=== PATIENT | female | born 1990 | race Caucasian/White ===

== ENCOUNTER 2017-03-06 13:58 | Outpatient (CLI) | payer BC ==
[2017-03-06 15:03] LABS: APPEARANCE,URINE CLEAR; BILIRUBIN,URINE NEGATIVE (NEGATIVE); GLUCOSE, URINE NEGATIVE (NEGATIVE); KETONES,URINE NEGATIVE (NEGATIVE); LEUKOCYTE ESTERASE,URINE NEGATIVE (NEGATIVE); NITRITE,URINE NEGATIVE (NEGATIVE); PROTEIN,URINE NEGATIVE (NEGATIVE); URINE SPECIFIC GRAVITY 1.001; UROBILINOGEN,URINE NEGATIVE mg/dL (<2.0)
[2017-03-06] MEDS ORDERED: NIFEDIPINE 10 MG CAPSULE ONE (15:14)
[2017-03-06 15:16] LABS: URINE BARBITURATES SCREEN NEGATIVE; URINE METHADONE SCREEN NEGATIVE; URINE OPIATES LOW NEGATIVE; URINE PHENCYCLIDINE SCREEN NEGATIVE
[2017-03-06] MEDS ORDERED: NALBUPHINE HCL INJ 10 MG/1 ML AMPULE ONE (15:28)
[2017-03-06 16:16] LABS: ABSOLUTE EOSINOPHILS # (AUTO) 0.1 10^3/uL (0.0-0.6); ABSOLUTE LYMPHOCYTES (AUTO) 1.5 10^3/uL (0.5-4.7); ABSOLUTE MONOCYTES (AUTO) 0.5 10^3/uL (0.1-1.4); ABSOLUTE NEUT (AUTO) 5.9 10^3/uL (1.7-8.2); BASOPHILS % (AUTO) 0.3 % (0-2); EOSINOPHILS % (AUTO) 0.7 % (0-6); HEMATOCRIT 35.7 % (36.0-47.0); HGB HCT DIFFERENCE 0.3; LYMPHOCYTES % (AUTO) 18.3 % (13-45); MEAN CORPUSCULAR HEMOGLOBIN 30.6 pg (27.0-33.4); MEAN CORPUSCULAR HGB CONC 33.7 g/dL (32.0-36.0); MEAN CORPUSCULAR VOLUME 91 fl (80-97); MONOCYTES % (AUTO) 6.7 % (3-13); RED BLOOD COUNT 3.93 10^6/uL (3.72-5.28); RED CELL DISTRIBUTION WIDTH 13.1 % (11.5-14.0)
[2017-03-06 17:18] LABS: ADD HIVPANEL? NO; HIV (1 AND 2) ANTIBODY NEGATIVE (NEGATIVE)
[2017-03-06 17:44] LABS: CHLAM PCR NOT DETECTED (NOT DETECT)
--- NOTE | 2017-03-06 21:18 | L&D Discharge Summary ---
OB Discharge Summary Datetime Report Generated by CPN: 03/06/2017 21:17 DISCHARGE DIAGNOSIS Diagnosis/Symptoms: Labor Number of Babies in Womb: 1 Parity: 0 DIET/ACTIVITY/RESTRICTIONS Diet: Regular Activity: Normal Activity TEACHING/INSTRUCTIONS/REFERRALS Instructions Given To: patient Instructions Understood: Patient Verbalized Understanding; Support Person Verbalized Understanding Referrals: Director Regulatory Agency Educational Materials- Other: health department DISCHARGE INFORMATION Discharged AMA: No Discharge Date/Time: 03/06/2017 18:08 Discharged To: Home Discharge Provider Name: DR vitaen Accompanied By: Discharge Method: Ambulatory Condition: Stable FOLLOW UP INFORMATION Follow Up With: [facility] Follow Up On: As Scheduled Follow Up Phone Number: [facility] -
--- NOTE | 2017-03-07 22:49 | L&D General Admission ---
General Admit Datetime Report Generated by CPN: 03/07/2017 22:45 INFORMATION Patient Age: 26 (02/22/2017 10:09:QS system process) EDC: 05/10/2017 00:00 (03/06/2017 14:13:Katina Ruchince, RNC) : 1 (03/06/2017 14:13:Katina Ruchince, RNC) Para: 0 (03/06/2017 14:13:Katina Bellavance, RNC) Term: 0 (03/06/2017 14:13:Katina Bellavance, RNC) : 0 (03/06/2017 14:13:Katina Bellavance, RNC) Spontaneous Abortions: 0 (03/06/2017 14:13:Katina Bellavance, RNC) Induced Abortions: 0 (03/06/2017 14:13:Katina Belljuliannence, RNC) Livin (03/06/2017 14:13:Katina Andrése, RNC) Cesareans: 0 (03/06/2017 14:13:Katina Bellavance, RNC) VBACs: 0 (03/06/2017 14:13:Katina Bellavance, RNC) Ectopic: 0 (03/06/2017 14:13:Katina Bellavance, RNC) Multiple Births: 0 (03/06/2017 14:13:Katina Bellavance, RNC) Baby, Number in Womb: 1 (03/06/2017 14:13:Katina Bellavance, RNC) CARE Eligibility Clerk Other: none (03/06/2017 14:13:Miranda Camp, RNC) Month of 1st Visit: no care (03/06/2017 14:13:Miranda Camp, RNC) Adequate Care: No (03/06/2017 14:13:Katina Bellavance, RNC) Height (in): 64 (03/06/2017 14:11:QS system process) ALLERGIES Medication Allergy: No (03/06/2017 14:13:Katina Bellavance, RNC) Medication Allergies: No Known Allergies (03/06/2017) (03/06/2017 14:11:QS system process) Latex Allergy: No Latex Allergies (03/06/2017 14:13:Katina Bellavance, RNC) Food Allergies: no (03/06/2017 14:13:Katina Bellavance, RNC) Environmental Allergies: no (03/06/2017 14:13:Katina Bellavance, RNC) COMMUNICATION Primary Language: Romanian (03/06/2017 14:13:Katina Bellavance, RNC) Communication Barrier(s): Visual deficit (03/06/2017 14:13:Katina Bellavance, RNC) Communication Needs: contacts (03/06/2017 14:13:Katina Bellavance, RNC) DEMOGRAPHICS Address: [place] [address] (02/22/2017 10:09:QS system process) Zipcode: [address] (02/22/2017 10:09:QS system process) Home (02/22/2017 10:09:QS system process) Work (02/22/2017 10:18:QS system process) Work (02/22/2017 10:09:QS system process) SSN: [id number] (02/22/2017 10:09:QS system process) Next of Kin Name: KEILY BARROS (02/22/2017 10:09:QS system process) Next of Kin (02/22/2017 10:09:QS system process) Next of Kin Relationship: SPO (02/22/2017 10:09:QS system process) Date of : 1990 (02/22/2017 10:09:QS system process) Marital Status: (02/22/2017 10:09:QS system process) Sex: Female (02/22/2017 10:09:QS system process) Race: (02/22/2017 10:09:QS system process) Ethnicity: Non- or (02/22/2017 10:09:QS system process) Jain: Synagogue (03/06/2017 13:58:QS system process) DRUG AND ALCOHOL USE Alcohol: No (03/06/2017 14:13:YAIR Sharma) Cigarettes: Never Smoker. [id number] (03/06/2017 14:13:YAIR Sharma) Marijuana: No (03/06/2017 14:13:YAIR Sharma) Cocaine: No (03/06/2017 14:13:YAIR Sharma) Other Illicit Drugs: No (03/06/2017 14:13:Katina Bellavance, RNC) VACCINE HISTORY Influenza Vaccine: No (03/06/2017 14:13:Katina Bellavance, RNC) Pneumococcal Vaccine: No (03/06/2017 14:13:Katina Bellavance, RNC) Tetanus Vaccine: Uncertain (03/06/2017 14:13:Katina Bellavance, RNC) Tdap Vaccine: Uncertain (03/06/2017 14:13:Katina Bellavance, RNC) Hepatitis B Vaccine: Yes (03/06/2017 14:13:Katina Bellavance, RNC) Mechanic Insulator: [facility] (03/06/2017 14:13:Katina Bellavance, RNC) Feeding Preference: Breast (03/06/2017 14:13:Katina Bellavance, RNC) Benefit of Breast Feed Discussed: Yes (03/06/2017 14:13:Katina Bellavance, RNC) Circumcision: N/A (03/06/2017 14:13:Katina Bellavance, RNC) Classes Attended: No (03/06/2017 14:13:YAIR Sharma) Tubal Ligation: No (03/06/2017 14:13:YAIR Sharma) Tubal Authorization Signed: N/A (03/06/2017 14:13:YAIR Sharma) Consent: N/A (03/06/2017 14:13:YAIR Sharma) Consent Signed: N/A (03/06/2017 14:13:YAIR Sharma) Pain Management Plans: Epidural (03/06/2017 14:13:YAIR Sharma) Plans for Labor and Delivery: None (03/06/2017 14:13:YAIR Sharma) Support Person: keily barros (03/06/2017 14:13:YAIR Sharma) Support Person Relationship: (03/06/2017 14:13:YAIR Sharma) LABS Hemoglobin: 12.0 (03/06/2017 16:00:QS system process) Hematocrit: 35.7 L (03/06/2017 16:00:QS system process) MCV: 91 (03/06/2017 16:00:QS system process) HIV Results: NEGATIVE (03/06/2017 16:00:QS system process) Rubella: POSITIVE NEGATIVE IF LESS THAN OR EQUAL TO 9.99 IU/mL POSITIVE IF GREATER THAN OR EQUAL TO 10.0 IU/mL (03/06/2017 16:00:QS system process) Rubella Titer: 22.50 (03/06/2017 16:00:QS system process)
--- NOTE | 2017-03-07 22:49 | Antepartum Discharge Summary ---
Antepartum DC Datetime Report Generated by CPN: 03/07/2017 22:45 DIET/ACTIVITY/RESTRICTIONS Diet: Regular (03/06/2017 18:00:Miranda Camp, RNC) Activity: Normal Activity (03/06/2017 18:00:Miranda Camp, RNC) TEACHING/INSTRUCTIONS/REFERRALS Instructions Given To: patient (03/06/2017 18:00:Miranda Camp, RNC) Instructions Understood: Patient Verbalized Understanding; Support Person Verbalized Understanding (03/06/2017 18:00:Miranda Camp, RNC) Referrals: Jewel Bearing Turner (03/06/2017 18:00:Miranda Camp, RNC) Educational Materials- Other: health department (03/06/2017 18:00:Miranda Camp, RNC) DISCHARGE INFORMATION Discharged AMA: No (03/06/2017 18:00:Miranda Camp, RNC) Discharge Date/Time: 03/06/2017 18:08 (03/06/2017 18:00:Miranda Camp, RNC) Discharged To: Home (03/06/2017 18:00:Miranda Camp, RNC) Discharge Provider Name: DR nassar (03/06/2017 18:00:Miranda Camp, RNC) Accompanied By: (03/06/2017 18:00:Miranda Camp, RNC) Discharge Method: Ambulatory (03/06/2017 18:00:Miranda Camp, RNC) Condition: Stable (03/06/2017 18:00:Miranda Camp, RNC) FOLLOW UP INFORMATION Follow Up With: [facility] (03/06/2017 18:00:Miranda Camp, RNC) Follow Up On: As Scheduled (03/06/2017 18:00:YAIR Sanchez) Follow Up Phone Number: [facility] - (03/06/2017 18:00:YAIR Sanchez)
--- NOTE | 2017-03-07 22:49 | L&D Discharge Summary ---
OB Discharge Summary Datetime Report Generated by CPN: 03/07/2017 22:45 DISCHARGE DIAGNOSIS Diagnosis/Symptoms: Labor Gestation: 30.5 Number of Babies in Womb: 1 Parity: 0 DIET/ACTIVITY/RESTRICTIONS Diet: Regular Activity: Normal Activity TEACHING/INSTRUCTIONS/REFERRALS Instructions Given To: patient Instructions Understood: Patient Verbalized Understanding; Support Person Verbalized Understanding Referrals: Nurse Leader Educational Materials- Other: health department DISCHARGE INFORMATION Discharged AMA: No Discharge Date/Time: 03/06/2017 18:08 Discharged To: Home Discharge Provider Name: cesario Accompanied By: Discharge Method: Ambulatory Condition: Stable FOLLOW UP INFORMATION Follow Up With: [facility] Follow Up On: As Scheduled Follow Up Phone Number: [facility] -
--- NOTE | 2017-03-08 04:49 | Antepartum Discharge Summary ---
Antepartum DC Datetime Report Generated by CPN: 03/08/2017 04:46 DIET/ACTIVITY/RESTRICTIONS Diet: Regular (03/06/2017 18:00:Miranda Camp, RNC) Activity: Normal Activity (03/06/2017 18:00:Miranda Camp, RNC) TEACHING/INSTRUCTIONS/REFERRALS Instructions Given To: patient (03/06/2017 18:00:Miranda Camp, RNC) Instructions Understood: Patient Verbalized Understanding; Support Person Verbalized Understanding (03/06/2017 18:00:Miranda Camp, RNC) Referrals: Crabbing Machine Operator (03/06/2017 18:00:Miranda Camp, RNC) Educational Materials- Other: health department (03/06/2017 18:00:Miranda Camp, RNC) DISCHARGE INFORMATION Discharged AMA: No (03/06/2017 18:00:Miranda Camp, RNC) Discharge Date/Time: 03/06/2017 18:08 (03/06/2017 18:00:Miranda Camp, RNC) Discharged To: Home (03/06/2017 18:00:Miranda Camp, RNC) Discharge Provider Name: DR nassar (03/06/2017 18:00:Miranda Camp, RNC) Accompanied By: (03/06/2017 18:00:Miranda Camp, RNC) Discharge Method: Ambulatory (03/06/2017 18:00:Miranda Camp, RNC) Condition: Stable (03/06/2017 18:00:Miranda Camp, RNC) FOLLOW UP INFORMATION Follow Up With: [facility] (03/06/2017 18:00:Miranda Camp, RNC) Follow Up On: As Scheduled (03/06/2017 18:00:YAIR Sanchez) Follow Up Phone Number: [facility] - (03/06/2017 18:00:YAIR Sanchez)
--- NOTE | 2017-03-08 04:49 | L&D General Admission ---
General Admit Datetime Report Generated by CPN: 03/08/2017 04:46 INFORMATION Patient Age: 26 (02/22/2017 10:09:QS system process) EDC: 05/10/2017 00:00 (03/06/2017 14:13:Katina Belljuliannence, RNC) : 1 (03/06/2017 14:13:Katina Ruchince, RNC) Para: 0 (03/06/2017 14:13:Katina Bellavance, RNC) Term: 0 (03/06/2017 14:13:Katina Bellavance, RNC) : 0 (03/06/2017 14:13:Katina Bellavance, RNC) Spontaneous Abortions: 0 (03/06/2017 14:13:Katina Bellavance, RNC) Induced Abortions: 0 (03/06/2017 14:13:Katina Bellavance, RNC) Livin (03/06/2017 14:13:Katina Andrése, RNC) Cesareans: 0 (03/06/2017 14:13:Katina Bellavance, RNC) VBACs: 0 (03/06/2017 14:13:Katina Bellavance, RNC) Ectopic: 0 (03/06/2017 14:13:Katina Bellavance, RNC) Multiple Births: 0 (03/06/2017 14:13:Katina Bellavance, RNC) Baby, Number in Womb: 1 (03/06/2017 14:13:Katina Bellavance, RNC) CARE Robotic Weld Technician Other: none (03/06/2017 14:13:Miranda Camp, RNC) Month of 1st Visit: no care (03/06/2017 14:13:Miranda Camp, RNC) Adequate Care: No (03/06/2017 14:13:Katina Bellavance, RNC) Height (in): 64 (03/06/2017 14:11:QS system process) ALLERGIES Medication Allergy: No (03/06/2017 14:13:Katina Bellavance, RNC) Medication Allergies: No Known Allergies (03/06/2017) (03/06/2017 14:11:QS system process) Latex Allergy: No Latex Allergies (03/06/2017 14:13:Katina Bellavance, RNC) Food Allergies: no (03/06/2017 14:13:Katina Bellavance, RNC) Environmental Allergies: no (03/06/2017 14:13:Katina Bellavance, RNC) COMMUNICATION Primary Language: Finnish (03/06/2017 14:13:Katina Bellavance, RNC) Communication Barrier(s): Visual deficit (03/06/2017 14:13:Katina Bellavance, RNC) Communication Needs: contacts (03/06/2017 14:13:Katina Bellavance, RNC) DEMOGRAPHICS Address: [place] [address] (02/22/2017 10:09:QS system process) Zipcode: [address] (02/22/2017 10:09:QS system process) Home (02/22/2017 10:09:QS system process) Work (02/22/2017 10:18:QS system process) Work (02/22/2017 10:09:QS system process) SSN: [id number] (02/22/2017 10:09:QS system process) Next of Kin Name: KEILY BARROS (02/22/2017 10:09:QS system process) Next of Kin (02/22/2017 10:09:QS system process) Next of Kin Relationship: SPO (02/22/2017 10:09:QS system process) Date of : 1990 (02/22/2017 10:09:QS system process) Marital Status: (02/22/2017 10:09:QS system process) Sex: Female (02/22/2017 10:09:QS system process) Race: (02/22/2017 10:09:QS system process) Ethnicity: Non- or (02/22/2017 10:09:QS system process) Sikhism: Hindu (03/06/2017 13:58:QS system process) DRUG AND ALCOHOL USE Alcohol: No (03/06/2017 14:13:YAIR Sharma) Cigarettes: Never Smoker. [id number] (03/06/2017 14:13:YAIR Sharma) Marijuana: No (03/06/2017 14:13:YAIR Sharma) Cocaine: No (03/06/2017 14:13:YAIR Sharma) Other Illicit Drugs: No (03/06/2017 14:13:Katina Bellavance, RNC) VACCINE HISTORY Influenza Vaccine: No (03/06/2017 14:13:Katina Bellavance, RNC) Pneumococcal Vaccine: No (03/06/2017 14:13:Katina Bellavance, RNC) Tetanus Vaccine: Uncertain (03/06/2017 14:13:Katina Bellavance, RNC) Tdap Vaccine: Uncertain (03/06/2017 14:13:Katina Bellavance, RNC) Hepatitis B Vaccine: Yes (03/06/2017 14:13:Katina Bellavance, RNC) Fleet Mechanic: [facility] (03/06/2017 14:13:Katina Bellavance, RNC) Feeding Preference: Breast (03/06/2017 14:13:Katina Bellavance, RNC) Benefit of Breast Feed Discussed: Yes (03/06/2017 14:13:Katina Bellavance, RNC) Circumcision: N/A (03/06/2017 14:13:Katina Bellavance, RNC) Classes Attended: No (03/06/2017 14:13:YAIR Sharma) Tubal Ligation: No (03/06/2017 14:13:YAIR Sharma) Tubal Authorization Signed: N/A (03/06/2017 14:13:YAIR Sharma) Consent: N/A (03/06/2017 14:13:YAIR Sharma) Consent Signed: N/A (03/06/2017 14:13:YAIR Sharma) Pain Management Plans: Epidural (03/06/2017 14:13:YAIR Sharma) Plans for Labor and Delivery: None (03/06/2017 14:13:YAIR Sharma) Support Person: keily barros (03/06/2017 14:13:YAIR Sharma) Support Person Relationship: (03/06/2017 14:13:YAIR Sharma) LABS Hemoglobin: 12.0 (03/06/2017 16:00:QS system process) Hematocrit: 35.7 L (03/06/2017 16:00:QS system process) MCV: 91 (03/06/2017 16:00:QS system process) HIV Results: NEGATIVE (03/06/2017 16:00:QS system process) Rubella: POSITIVE NEGATIVE IF LESS THAN OR EQUAL TO 9.99 IU/mL POSITIVE IF GREATER THAN OR EQUAL TO 10.0 IU/mL (03/06/2017 16:00:QS system process) Rubella Titer: 22.50 (03/06/2017 16:00:QS system process)
--- NOTE | 2017-03-08 04:49 | L&D Admission Assessment ---
LD ADM ASMT Datetime Report Generated by CPN: 03/08/2017 04:46 WEIGHT Weight (lb): 117 (03/06/2017 14:11:QS system process) Weight (kg): 53.2 (03/06/2017 14:11:QS system process) PAIN Pain Scale: 3 (03/06/2017 14:16:Katina Bellavance, RNC) Pain Presence: Intermittent (03/06/2017 14:16:Katina Bellavance, RNC) Pain Type: Cramping; Sharp (03/06/2017 14:16:Katina Bellavance, RNC) Pain Location: Abdomen (03/06/2017 14:16:Katina Bellavance, RNC) Pain Goal: 0 (03/06/2017 14:16:Katina Bellavance, RNC) Pain Comments: 0 (03/06/2017 18:00:Miranda Camp, RNC) Pain Comments: aware but not uncomfortable (03/06/2017 15:30:Katina Bellavance, RNC) CONTRACTIONS Frequency (min): 2-4 (03/06/2017 18:00:Miranda Camp, RNC) Frequency (min): 2-4 (03/06/2017 17:24:Miranda Camp, RNC) Frequency (min): 2-3 (03/06/2017 17:00:Miranda Camp, RNC) Frequency (min): 6-8 (03/06/2017 16:24:Katina Bellavance, RNC) Frequency (min): 2-3 (03/06/2017 15:30:Katina Bellavance, RNC) Frequency (min): 2-3 (03/06/2017 14:57:Katina Bellavance, RNC) Duration (sec): 50-60 (03/06/2017 18:00:Miranda Camp, RNC) Duration (sec): 50-60 (03/06/2017 17:24:Miranda Camp, RNC) Duration (sec): 50-60 (03/06/2017 17:00:Miranda Camp, RNC) Duration (sec): 40-50 (03/06/2017 16:24:Katina Bellavance, RNC) Duration (sec): 50-60 (03/06/2017 15:30:Katina Bellavance, RNC) Duration (sec): 50-60 (03/06/2017 14:57:Katina Bellavance, RNC) Quality: Mild (03/06/2017 18:00:Miranda Camp, RNC) Quality: Mild (03/06/2017 17:24:Miranda Camp, RNC) Quality: Mild (03/06/2017 17:00:Miranda Camp, RNC) Quality: Mild (03/06/2017 16:24:Katina Bellavance, RNC) Quality: Mild (03/06/2017 15:30:Katina Bellavance, RNC) Quality: Mild (03/06/2017 14:57:Katina Bellavance, RNC) Pattern: Normal: <= 5 Contractions in 10 Minutes (03/06/2017 15:30:Katina Bellavance, RNC) Pattern: Normal: <= 5 Contractions in 10 Minutes (03/06/2017 14:57:Katina Bellavance, RNC) Resting Tone [place]: Relaxed (03/06/2017 18:00:Miranda Camp, RNC) Resting Tone [place]: Relaxed (03/06/2017 17:24:Miranda Camp, RNC) Resting Tone [place]: Relaxed (03/06/2017 17:00:Miranda Camp, RNC) Resting Tone [place]: Relaxed (03/06/2017 16:24:Katina Bellavance, RNC) Resting Tone [place]: Relaxed (03/06/2017 15:30:Katina Bellavance, RNC) Resting Tone [place]: Relaxed (03/06/2017 14:57:Katina Bellavance, RNC) Resting Tone [place]: Relaxed (03/06/2017 14:16:Katina Bellavance, RNC) VAGINAL EXAM Dilatation (cm): 0.0 (03/06/2017 14:39:Katina Bellavance, RNC) Effacement (%): 0 (03/06/2017 14:39:Katina Bellavance, RNC) Station: -4 (03/06/2017 14:39:Katina Bellavance, RNC) BABY A FHR Baseline Rate (bpm) Baby A: 130 (03/06/2017 18:00:Miranda Camp, RNC) FHR Baseline Rate (bpm) Baby A: 135 (03/06/2017 17:24:Miranda Camp, RNC) FHR Baseline Rate (bpm) Baby A: 130 (03/06/2017 17:00:Miranda Camp, RNC) FHR Baseline Rate (bpm) Baby A: 135 (03/06/2017 16:24:Katina Bellavance, RNC) FHR Baseline Rate (bpm) Baby A: 140 (03/06/2017 15:30:Katina Bellavance, RNC) FHR Baseline Rate (bpm) Baby A: 140 (03/06/2017 14:57:Katina Bellavance, RNC) FHR Baseline Rate (bpm) Baby A: 145 (03/06/2017 14:16:Katina Bellavance, RNC) Variability Baby A: Moderate 6-25 bpm (03/06/2017 18:00:Miranda Camp, RNC) Variability Baby A: Moderate 6-25 bpm (03/06/2017 17:24:Miranda Camp, RNC) Variability Baby A: Moderate 6-25 bpm (03/06/2017 17:00:Miranda Camp, RNC) Variability Baby A: Moderate 6-25 bpm (03/06/2017 16:24:Katina Bellavance, RNC) Variability Baby A: Moderate 6-25 bpm (03/06/2017 15:30:Katina Bellavance, RNC) Variability Baby A: Moderate 6-25 bpm (03/06/2017 14:57:Katina Bellavance, RNC) Variability Baby A: Moderate 6-25 bpm (03/06/2017 14:16:Katina Bellavance, RNC) Accelerations Baby A: 15X15 (03/06/2017 18:00:Miranda Camp, RNC) Accelerations Baby A: 15X15 (03/06/2017 17:24:Miranda Camp, RNC) Accelerations Baby A: 15X15 (03/06/2017 17:00:Miranda Camp, RNC) Accelerations Baby A: 10X10 (03/06/2017 16:24:Katina Bellavance, RNC) Accelerations Baby A: 15X15 (03/06/2017 15:30:Katina Bellavance, RNC) Accelerations Baby A: 15X15 (03/06/2017 14:57:Katina Bellavance, RNC) Decelerations Baby A: None (03/06/2017 18:00:Miranda Camp, RNC) Decelerations Baby A: None (03/06/2017 17:24:Miranda Camp, RNC) Decelerations Baby A: None (03/06/2017 17:00:Miranda Camp, RNC) Decelerations Baby A: None (03/06/2017 16:24:Katina Bellavance, RNC) Decelerations Baby A: None (03/06/2017 15:30:Katina Bellavance, RNC) Decelerations Baby A: None (03/06/2017 14:57:Katina Bellavance, RNC)
--- NOTE | 2017-03-08 04:49 | L&D Discharge Summary ---
OB Discharge Summary Datetime Report Generated by CPN: 03/08/2017 04:46 DISCHARGE DIAGNOSIS Diagnosis/Symptoms: Labor Gestation: 30.5 Number of Babies in Womb: 1 Parity: 0 DIET/ACTIVITY/RESTRICTIONS Diet: Regular Activity: Normal Activity TEACHING/INSTRUCTIONS/REFERRALS Instructions Given To: patient Instructions Understood: Patient Verbalized Understanding; Support Person Verbalized Understanding Referrals: [facility] Educational Materials- Other: health department DISCHARGE INFORMATION Discharged AMA: No Discharge Date/Time: 03/06/2017 18:08 Discharged To: Home Discharge Provider Name: cesario Accompanied By: Discharge Method: Ambulatory Condition: Stable FOLLOW UP INFORMATION Follow Up With: [facility] Follow Up On: As Scheduled Follow Up Phone Number: [facility] -
[2017-03-08 07:43] LABS: HEPATITIS C VIRUS AB <0.1 s/co ratio (0.0-0.9)
--- NOTE | 2017-03-08 10:49 | L&D Discharge Summary ---
OB Discharge Summary Datetime Report Generated by CPN: 03/08/2017 10:45 DISCHARGE DIAGNOSIS Diagnosis/Symptoms: Labor Gestation: 30.5 Number of Babies in Womb: 1 Parity: 0 DIET/ACTIVITY/RESTRICTIONS Diet: Regular Activity: Normal Activity TEACHING/INSTRUCTIONS/REFERRALS Instructions Given To: patient Instructions Understood: Patient Verbalized Understanding; Support Person Verbalized Understanding Referrals: Excellence Leader Educational Materials- Other: health department DISCHARGE INFORMATION Discharged AMA: No Discharge Date/Time: 03/06/2017 18:08 Discharged To: Home Discharge Provider Name: cesario Accompanied By: Discharge Method: Ambulatory Condition: Stable FOLLOW UP INFORMATION Follow Up With: [facility] Follow Up On: As Scheduled Follow Up Phone Number: [facility] -
--- NOTE | 2017-03-08 10:49 | L&D General Admission ---
General Admit Datetime Report Generated by CPN: 03/08/2017 10:45 INFORMATION Patient Age: 26 (02/22/2017 10:09:QS system process) EDC: 05/10/2017 00:00 (03/06/2017 14:13:Katina Ruchince, RNC) : 1 (03/06/2017 14:13:Katina Ruchince, RNC) Para: 0 (03/06/2017 14:13:Katina Bellavance, RNC) Term: 0 (03/06/2017 14:13:Katina Bellavance, RNC) : 0 (03/06/2017 14:13:Katina Bellavance, RNC) Spontaneous Abortions: 0 (03/06/2017 14:13:Katina Bellavance, RNC) Induced Abortions: 0 (03/06/2017 14:13:Katina Belljuliannence, RNC) Livin (03/06/2017 14:13:Katina Andrése, RNC) Cesareans: 0 (03/06/2017 14:13:Katina Bellavance, RNC) VBACs: 0 (03/06/2017 14:13:Katina Bellavance, RNC) Ectopic: 0 (03/06/2017 14:13:Katina Bellavance, RNC) Multiple Births: 0 (03/06/2017 14:13:Katina Bellavance, RNC) Baby, Number in Womb: 1 (03/06/2017 14:13:Katina Bellavance, RNC) CARE Pelt Inspector Other: none (03/06/2017 14:13:Miranda Camp, RNC) Month of 1st Visit: no care (03/06/2017 14:13:Miranda Camp, RNC) Adequate Care: No (03/06/2017 14:13:Katina Bellavance, RNC) Height (in): 64 (03/06/2017 14:11:QS system process) ALLERGIES Medication Allergy: No (03/06/2017 14:13:Katina Bellavance, RNC) Medication Allergies: No Known Allergies (03/06/2017) (03/06/2017 14:11:QS system process) Latex Allergy: No Latex Allergies (03/06/2017 14:13:Katina Bellavance, RNC) Food Allergies: no (03/06/2017 14:13:Katina Bellavance, RNC) Environmental Allergies: no (03/06/2017 14:13:Katina Bellavance, RNC) COMMUNICATION Primary Language: [place] Islander (03/06/2017 14:13:Katina Bellavance, RNC) Communication Barrier(s): Visual deficit (03/06/2017 14:13:Katina Bellavance, RNC) Communication Needs: contacts (03/06/2017 14:13:Katina Bellavance, RNC) DEMOGRAPHICS Address: [place] [address] (02/22/2017 10:09:QS system process) Zipcode: [address] (02/22/2017 10:09:QS system process) Home (02/22/2017 10:09:QS system process) Work (02/22/2017 10:18:QS system process) Work (02/22/2017 10:09:QS system process) SSN: [id number] (02/22/2017 10:09:QS system process) Next of Kin Name: KEILY BARROS (02/22/2017 10:09:QS system process) Next of Kin (02/22/2017 10:09:QS system process) Next of Kin Relationship: SPO (02/22/2017 10:09:QS system process) Date of : 1990 (02/22/2017 10:09:QS system process) Marital Status: (02/22/2017 10:09:QS system process) Sex: Female (02/22/2017 10:09:QS system process) Race: (02/22/2017 10:09:QS system process) Ethnicity: Non- or (02/22/2017 10:09:QS system process) Shinto: Restorationism (03/06/2017 13:58:QS system process) DRUG AND ALCOHOL USE Alcohol: No (03/06/2017 14:13:YAIR Sharma) Cigarettes: Never Smoker. [id number] (03/06/2017 14:13:YAIR Sharma) Marijuana: No (03/06/2017 14:13:YAIR Sharma) Cocaine: No (03/06/2017 14:13:YAIR Sharma) Other Illicit Drugs: No (03/06/2017 14:13:Katina Bellavance, RNC) VACCINE HISTORY Influenza Vaccine: No (03/06/2017 14:13:Katina Bellavance, RNC) Pneumococcal Vaccine: No (03/06/2017 14:13:Katina Bellavance, RNC) Tetanus Vaccine: Uncertain (03/06/2017 14:13:Katina Bellavance, RNC) Tdap Vaccine: Uncertain (03/06/2017 14:13:Katina Bellavance, RNC) Hepatitis B Vaccine: Yes (03/06/2017 14:13:Katina Bellavance, RNC) Retail Beauty Specialist: [facility] (03/06/2017 14:13:Katina Bellavance, RNC) Feeding Preference: Breast (03/06/2017 14:13:Katina Bellavance, RNC) Benefit of Breast Feed Discussed: Yes (03/06/2017 14:13:Katina Bellavance, RNC) Circumcision: N/A (03/06/2017 14:13:Katina Bellavance, RNC) Classes Attended: No (03/06/2017 14:13:YAIR Sharma) Tubal Ligation: No (03/06/2017 14:13:YAIR Sharma) Tubal Authorization Signed: N/A (03/06/2017 14:13:YAIR Sharma) Consent: N/A (03/06/2017 14:13:YAIR Sharma) Consent Signed: N/A (03/06/2017 14:13:YAIR Sharma) Pain Management Plans: Epidural (03/06/2017 14:13:YAIR Sharma) Plans for Labor and Delivery: None (03/06/2017 14:13:YAIR Sharma) Support Person: keily barros (03/06/2017 14:13:YAIR Sharma) Support Person Relationship: (03/06/2017 14:13:YAIR Sharma) LABS Hemoglobin: 12.0 (03/06/2017 16:00:QS system process) Hematocrit: 35.7 L (03/06/2017 16:00:QS system process) MCV: 91 (03/06/2017 16:00:QS system process) HIV Results: NEGATIVE (03/06/2017 16:00:QS system process) Rubella: POSITIVE NEGATIVE IF LESS THAN OR EQUAL TO 9.99 IU/mL POSITIVE IF GREATER THAN OR EQUAL TO 10.0 IU/mL (03/06/2017 16:00:QS system process) Rubella Titer: 22.50 (03/06/2017 16:00:QS system process)
--- NOTE | 2017-03-08 10:49 | L&D Admission Assessment ---
LD ADM ASMT Datetime Report Generated by CPN: 03/08/2017 10:45 WEIGHT Weight (lb): 117 (03/06/2017 14:11:QS system process) Weight (kg): 53.2 (03/06/2017 14:11:QS system process) PAIN Pain Scale: 3 (03/06/2017 14:16:Katina Bellavance, RNC) Pain Presence: Intermittent (03/06/2017 14:16:Katina Bellavance, RNC) Pain Type: Cramping; Sharp (03/06/2017 14:16:Katina Bellavance, RNC) Pain Location: Abdomen (03/06/2017 14:16:Katina Bellavance, RNC) Pain Goal: 0 (03/06/2017 14:16:Katina Bellavance, RNC) Pain Comments: 0 (03/06/2017 18:00:Miranda Camp, RNC) Pain Comments: aware but not uncomfortable (03/06/2017 15:30:Katina Bellavance, RNC) CONTRACTIONS Frequency (min): 2-4 (03/06/2017 18:00:Miranda Camp, RNC) Frequency (min): 2-4 (03/06/2017 17:24:Miranda Camp, RNC) Frequency (min): 2-3 (03/06/2017 17:00:Miranda Camp, RNC) Frequency (min): 6-8 (03/06/2017 16:24:Katina Bellavance, RNC) Frequency (min): 2-3 (03/06/2017 15:30:Katina Bellavance, RNC) Frequency (min): 2-3 (03/06/2017 14:57:Katina Bellavance, RNC) Duration (sec): 50-60 (03/06/2017 18:00:Miranda Camp, RNC) Duration (sec): 50-60 (03/06/2017 17:24:Miranda Camp, RNC) Duration (sec): 50-60 (03/06/2017 17:00:Miranda Camp, RNC) Duration (sec): 40-50 (03/06/2017 16:24:Katina Bellavance, RNC) Duration (sec): 50-60 (03/06/2017 15:30:Katina Bellavance, RNC) Duration (sec): 50-60 (03/06/2017 14:57:Katina Bellavance, RNC) Quality: Mild (03/06/2017 18:00:Miranda Camp, RNC) Quality: Mild (03/06/2017 17:24:Miranda Camp, RNC) Quality: Mild (03/06/2017 17:00:Miranda Camp, RNC) Quality: Mild (03/06/2017 16:24:Katina Bellavance, RNC) Quality: Mild (03/06/2017 15:30:Katina Bellavance, RNC) Quality: Mild (03/06/2017 14:57:Katina Bellavance, RNC) Pattern: Normal: <= 5 Contractions in 10 Minutes (03/06/2017 15:30:Katina Bellavance, RNC) Pattern: Normal: <= 5 Contractions in 10 Minutes (03/06/2017 14:57:Katina Bellavance, RNC) Resting Tone [place]: Relaxed (03/06/2017 18:00:Miranda Camp, RNC) Resting Tone [place]: Relaxed (03/06/2017 17:24:Miranda Camp, RNC) Resting Tone [place]: Relaxed (03/06/2017 17:00:Miranda Camp, RNC) Resting Tone [place]: Relaxed (03/06/2017 16:24:Katina Bellavance, RNC) Resting Tone [place]: Relaxed (03/06/2017 15:30:Katina Bellavance, RNC) Resting Tone [place]: Relaxed (03/06/2017 14:57:Katina Bellavance, RNC) Resting Tone [place]: Relaxed (03/06/2017 14:16:Katina Bellavance, RNC) VAGINAL EXAM Dilatation (cm): 0.0 (03/06/2017 14:39:Katina Bellavance, RNC) Effacement (%): 0 (03/06/2017 14:39:Katina Bellavance, RNC) Station: -4 (03/06/2017 14:39:Katina Bellavance, RNC) BABY A FHR Baseline Rate (bpm) Baby A: 130 (03/06/2017 18:00:Miranda Camp, RNC) FHR Baseline Rate (bpm) Baby A: 135 (03/06/2017 17:24:Miranda Camp, RNC) FHR Baseline Rate (bpm) Baby A: 130 (03/06/2017 17:00:Miranda Camp, RNC) FHR Baseline Rate (bpm) Baby A: 135 (03/06/2017 16:24:Katina Bellavance, RNC) FHR Baseline Rate (bpm) Baby A: 140 (03/06/2017 15:30:Katina Bellavance, RNC) FHR Baseline Rate (bpm) Baby A: 140 (03/06/2017 14:57:Katina Bellavance, RNC) FHR Baseline Rate (bpm) Baby A: 145 (03/06/2017 14:16:Katina Bellavance, RNC) Variability Baby A: Moderate 6-25 bpm (03/06/2017 18:00:Miranda Camp, RNC) Variability Baby A: Moderate 6-25 bpm (03/06/2017 17:24:Miranda Camp, RNC) Variability Baby A: Moderate 6-25 bpm (03/06/2017 17:00:Miranda Camp, RNC) Variability Baby A: Moderate 6-25 bpm (03/06/2017 16:24:Katina Bellavance, RNC) Variability Baby A: Moderate 6-25 bpm (03/06/2017 15:30:Katina Bellavance, RNC) Variability Baby A: Moderate 6-25 bpm (03/06/2017 14:57:Katina Bellavance, RNC) Variability Baby A: Moderate 6-25 bpm (03/06/2017 14:16:Katina Bellavance, RNC) Accelerations Baby A: 15X15 (03/06/2017 18:00:Miranda Camp, RNC) Accelerations Baby A: 15X15 (03/06/2017 17:24:Miranda Camp, RNC) Accelerations Baby A: 15X15 (03/06/2017 17:00:Miranda Camp, RNC) Accelerations Baby A: 10X10 (03/06/2017 16:24:Katina Bellavance, RNC) Accelerations Baby A: 15X15 (03/06/2017 15:30:Katina Bellavance, RNC) Accelerations Baby A: 15X15 (03/06/2017 14:57:Katina Bellavance, RNC) Decelerations Baby A: None (03/06/2017 18:00:Miranda Camp, RNC) Decelerations Baby A: None (03/06/2017 17:24:Miranda Camp, RNC) Decelerations Baby A: None (03/06/2017 17:00:Miranda Camp, RNC) Decelerations Baby A: None (03/06/2017 16:24:Katina Bellavance, RNC) Decelerations Baby A: None (03/06/2017 15:30:Katina Bellavance, RNC) Decelerations Baby A: None (03/06/2017 14:57:Katina Bellavance, RNC)
--- NOTE | 2017-03-08 10:49 | Antepartum Discharge Summary ---
Antepartum DC Datetime Report Generated by CPN: 03/08/2017 10:45 DIET/ACTIVITY/RESTRICTIONS Diet: Regular (03/06/2017 18:00:Miranda Camp, RNC) Activity: Normal Activity (03/06/2017 18:00:Miranda Camp, RNC) TEACHING/INSTRUCTIONS/REFERRALS Instructions Given To: patient (03/06/2017 18:00:Miranda Camp, RNC) Instructions Understood: Patient Verbalized Understanding; Support Person Verbalized Understanding (03/06/2017 18:00:Miranda Camp, RNC) Referrals: Student Services Coordinator (03/06/2017 18:00:Miranda Camp, RNC) Educational Materials- Other: health department (03/06/2017 18:00:Miranda Camp, RNC) DISCHARGE INFORMATION Discharged AMA: No (03/06/2017 18:00:Miranda Camp, RNC) Discharge Date/Time: 03/06/2017 18:08 (03/06/2017 18:00:Miranda Camp, RNC) Discharged To: Home (03/06/2017 18:00:Miranda Camp, RNC) Discharge Provider Name: DR nassar (03/06/2017 18:00:Miranda Camp, RNC) Accompanied By: (03/06/2017 18:00:Miranda Camp, RNC) Discharge Method: Ambulatory (03/06/2017 18:00:Miranda Camp, RNC) Condition: Stable (03/06/2017 18:00:Miranda Camp, RNC) FOLLOW UP INFORMATION Follow Up With: [facility] (03/06/2017 18:00:Miranda Camp, RNC) Follow Up On: As Scheduled (03/06/2017 18:00:YAIR Sanchez) Follow Up Phone Number: [facility] - (03/06/2017 18:00:YAIR Sanchez)
== END 2017-03-06 18:15 | disposition home or self-care (01) ==
LOC: LC 13:58
PROVIDERS: ATTEND Specialist
PROC: 4A1HXCZ Monitoring of Products of Conception, Cardiac Rate, External Approach (ICD-10-PCS; principal; 2017-03-06)
DX: O47.03 False labor before 37 completed weeks of gestation, third trimester (principal); O99.283 Endocrine, nutritional and metabolic diseases complicating pregnancy, third trimester; E86.0 Dehydration; Z3A.30 30 weeks gestation of pregnancy
CPT/HCPCS: 59025; 86900; 86901; 36415; 86850; 85025; 86762; 86592; 81001; 87340; 86701; 80307; 87491; 87591; 86803; 86804; 76815; J2300; J3490

== ENCOUNTER 2017-04-09 17:14 | Outpatient (CLI) | payer OTHER, BC ==
--- NOTE | 2017-04-09 17:53 | Non Stress Test Report ---
Non Stress Test Datetime Report Generated by CPN: 04/09/2017 17:52 DEMOGRAPHIC EGA NST: 30.5 INDICATION Indication for Study: Ordered by Provider Indication for Study (NST) Other: lc VITAL SIGNS Temperature - NST: 100.2 Pulse - NST: 89 RESP - NST: 16 NBPSYS NST: 112 NBPDIA NST: 70 MONITORING Monitor Explained: Monitor Explained; Test Explained; Patient Verbalized Understanding Time on Monitor: 03/06/2017 14:00 Time off Monitor: 03/06/2017 18:04 NST Duration: 244 NST INTERVENTIONS NST Interventions: PO Hydration; IV Fluids; Reposition Patient BABY A: [id number] BABY A Movement : Present Contraction Frequency : 2-4 FHR Baseline : 130 Accelerations : 15X15 Decelerations : None Variability : Moderate 6-25bpm NST Review: Meets Criteria for Reactive NST NST Review and Verified By : Vibha Mclean [facility] NST Results: Reactive NST REPORT Report Trigger: Send Report
[2017-04-09 18:18] LABS: APPEARANCE,URINE CLOUDY; BILIRUBIN,URINE NEGATIVE (NEGATIVE); GLUCOSE, URINE NEGATIVE (NEGATIVE); KETONES,URINE NEGATIVE (NEGATIVE); LEUKOCYTE ESTERASE,URINE SMALL (NEGATIVE); NITRITE,URINE NEGATIVE (NEGATIVE); PROTEIN,URINE NEGATIVE (NEGATIVE); URINE SPECIFIC GRAVITY 1.005; UROBILINOGEN,URINE NEGATIVE mg/dL (<2.0)
--- NOTE | 2017-04-09 18:19 | Non Stress Test Report ---
Non Stress Test Datetime Report Generated by CPN: 04/09/2017 18:19 DEMOGRAPHIC EGA NST: 35.4 INDICATION Indication for Study: Ordered by Provider MONITORING Monitor Explained: Monitor Explained; Test Explained; Patient Verbalized Understanding Time on Monitor: 04/09/2017 17:54 Time off Monitor: 04/09/2017 18:16 NST Duration: 22 NST INTERVENTIONS NST Interventions: PO Hydration; Reposition Patient Physician Notified NST: Dr. Kee BABY A Movement : Present Contraction Frequency : irregular FHR Baseline : 135 Accelerations : 15X15 Decelerations : None Variability : Minimal - Undetectable to <=5bpm NST Review: Meets Criteria for Reactive NST NST Review and Verified By : LYN Chi Results: Reactive NST REPORT Report Trigger: Send Report
[2017-04-09 18:31] LABS: URINE BARBITURATES SCREEN NEGATIVE; URINE METHADONE SCREEN NEGATIVE; URINE OPIATES LOW NEGATIVE; URINE PHENCYCLIDINE SCREEN NEGATIVE
== END 2017-04-09 18:27 | disposition home or self-care (01) ==
LOC: LC 17:14
PROVIDERS: ATTEND Obstetrics & Gynecology
PROC: 4A1HXCZ Monitoring of Products of Conception, Cardiac Rate, External Approach (ICD-10-PCS; principal; 2017-04-09)
DX: O47.03 False labor before 37 completed weeks of gestation, third trimester (principal); Z3A.35 35 weeks gestation of pregnancy
CPT/HCPCS: 59025; 80307; 81001

== ENCOUNTER 2017-05-12 14:04 | Inpatient (IN) | payer BC, MEDICAID ==
[2017-05-12 14:47] LABS: AMNISURE (ROM) POSITIVE (NEGATIVE)
[2017-05-12 14:47] LABS: APPEARANCE,URINE CLEAR; BILIRUBIN,URINE NEGATIVE (NEGATIVE); GLUCOSE, URINE NEGATIVE (NEGATIVE); KETONES,URINE NEGATIVE (NEGATIVE); LEUKOCYTE ESTERASE,URINE MODERATE (NEGATIVE); NITRITE,URINE NEGATIVE (NEGATIVE); PROTEIN,URINE NEGATIVE (NEGATIVE); URINE SPECIFIC GRAVITY 1.001; UROBILINOGEN,URINE NEGATIVE mg/dL (<2.0)
[2017-05-12 15:04] LABS: URINE BARBITURATES SCREEN NEGATIVE; URINE METHADONE SCREEN NEGATIVE; URINE OPIATES LOW NEGATIVE; URINE PHENCYCLIDINE SCREEN NEGATIVE
[2017-05-12 16:12] LABS: ABSOLUTE LYMPHOCYTES (AUTO) 1.5 10^3/uL (0.5-4.7); ABSOLUTE MONOCYTES (AUTO) 0.6 10^3/uL (0.1-1.4); ABSOLUTE NEUT (AUTO) 9.3 10^3/uL (1.7-8.2); BASOPHILS % (AUTO) 0.3 % (0-2); EOSINOPHILS % (AUTO) 0.3 % (0-6); HEMATOCRIT 39.7 % (36.0-47.0); HEMOGLOBIN 12.5 g/dL (12.0-15.5); HGB HCT DIFFERENCE -2.2; LYMPHOCYTES % (AUTO) 13.4 % (13-45); MEAN CORPUSCULAR HGB CONC 31.6 g/dL (32.0-36.0); MEAN CORPUSCULAR VOLUME 89 fl (80-97); MONOCYTES % (AUTO) 5.3 % (3-13); RED BLOOD COUNT 4.48 10^6/uL (3.72-5.28); RED CELL DISTRIBUTION WIDTH 14.2 % (11.5-14.0); SEGMENTED NEUTROPHILS % (AUTO) 80.7 % (42-78); WHITE BLOOD COUNT 11.5 10^3/uL (4.0-10.5)
[2017-05-12] MEDS ORDERED: FENTANYL/BUPIVACAINE/NS/PF 100 ML EPI PRN (17:04)
[2017-05-12] MEDS ORDERED: BUPIVACAINE HCL 0.25 % INJ/PF (2.5 MG/1 ML) 30 ML VIAL INFIL ONE (17:04)
[2017-05-12] MEDS ORDERED: BENZOIN/ALOE VERA/STORAX/TOLU TINCTURE 60 ML TP PRN (17:04)
[2017-05-12] MEDS ORDERED: EPHEDRINE SULFATE INJ 50 MG/1 ML AMPULE IV PRN (17:04)
[2017-05-12] MEDS: RINGERS SOLUTION,LACTATED 1,000 ML IV PRN ×2 (17:08→18:49)
[2017-05-12] MEDS ORDERED: MISOPROSTOL 0.2 MG TABLET PR PRN (17:23)
[2017-05-12] MEDS ORDERED: LIDOCAINE 1% INJ-PF (10 MG/ML) 30 ML SDV INJ ONE (17:23)
[2017-05-12] MEDS ORDERED: OXYTOCIN/NORMAL SALINE 1,000 ML IV PRN ×2 (17:23→23:15)
[2017-05-12] MEDS ORDERED: FENTANYL/BUPIVACAINE/NS/PF 200 MCG/100 ML RTUINJ EPI ONE (17:41)
[2017-05-12] MEDS ORDERED: BUPIVACAINE HCL 0.25 % INJ/PF (2.5 MG/1 ML) 30 ML VIAL ONE (17:41)
[2017-05-12] MEDS ORDERED: EPHEDRINE SULFATE INJ 50 MG/1 ML AMPULE ONE (17:41)
[2017-05-12] MEDS ORDERED: FENTANYL CITRATE INJ/PF 100 MCG/2 ML AMPUL IV ONE (18:15)
[2017-05-12] MEDS ORDERED: FENTANYL CITRATE INJ/PF 100 MCG/2 ML AMPUL ONE (18:16)
[2017-05-12] MEDS ORDERED: MISOPROSTOL 0.2 MG TABLET ONE (21:01)
[2017-05-12] MEDS ORDERED: OXYTOCIN/NORMAL SALINE 20 UNIT/1,000 ML RTUINJ ONE (21:01)
[2017-05-12] MEDS ORDERED: LIDOCAINE 1% INJ-PF (10 MG/ML) 30 ML SDV ONE (21:01)
[2017-05-12] MEDS ORDERED: PSEUDOEPHEDRINE HCL 30 MG TABLET PO PRN (23:15)
[2017-05-12] MEDS ORDERED: GLYCERIN/WITCH HAZEL LEAF 1 EACH MED..PAD TP PRN (23:15)
[2017-05-12] MEDS ORDERED: ACETAMINOPHEN WITH CODEINE #3 TABLET PO PRN ×2 (23:15)
[2017-05-12] MEDS ORDERED: DIPH/PERTUSS(ACELL)/TETANUS VAC/PF 0.5 ML SYR (>=10YO) IM PRN (23:15)
[2017-05-12] MEDS ORDERED: PROMETHAZINE HCL 25 MG SUPP.RECT PR PRN (23:15)
[2017-05-12] MEDS ORDERED: ACETAMINOPHEN 650 MG SUPP.RECT PR PRN (23:15)
[2017-05-12] MEDS ORDERED: NA PHOS,M-B/NA PHOS,DI-BA (ADULT) 133 ML ENEMA PR PRN (23:15)
[2017-05-12] MEDS ORDERED: PROMETHAZINE HCL 25 MG TABLET PO PRN (23:15)
[2017-05-12] MEDS ORDERED: DIPHENHYDRAMINE HCL 25 MG CAPSULE PO PRN (23:15)
[2017-05-12] MEDS ORDERED: DIBUCAINE 1% OINTMENT 28 GM TP PRN (23:15)
[2017-05-12] MEDS ORDERED: PROMETHAZINE HCL INJ 25 MG/1 ML VIAL IV PRN (23:15)
[2017-05-12] MEDS ORDERED: ZOLPIDEM TARTRATE 5 MG TABLET PO PRN (23:15)
[2017-05-12] MEDS ORDERED: MEASLES,MUMPS&RUBELLA VACC/PF 0.5 ML VIAL SUBCUT PRN (23:15)
[2017-05-12] MEDS ORDERED: MAGNESIUM HYDROXIDE SUSP 30 ML UDCUP PO PRN (23:15)
[2017-05-12] MEDS ORDERED: BENZOCAINE/MENTHOL AEROSOL SPRAY 56 ML TOP PRN (23:15)
[2017-05-13] MEDS ORDERED: KETOROLAC TROMETHAMINE 60 MG/2 ML SDV ONE (00:57)
[2017-05-13] MEDS ORDERED: KETOROLAC TROMETHAMINE INJ/PF 30 MG/1 ML SDV IV ONE (01:00)
--- NOTE | 2017-05-13 02:07 | Admission Physical ---
Datetime Report Generated by CPN: 05/13/2017 02:07 CURRENT ADMISSION Chief Complaint: Uterine Contractions; Suspected Ruptured Membranes Indication for Induction: Not Applicable Admit Plan: Admit to Unit; Initiate Labor Protocol ALLERGIES Medication Allergies: No Medication Allergies: No Known Allergies (03/06/2017) Latex: No Latex Allergies Food Allergies: no Environmental Allergies: no OBSTETRICAL HISTORY EDC: 05/10/2017 00:00 : 1 Para: 0 Term: 0 : 0 SAB: 0 IAB: 0 Ectopic: 0 Livin Cesareans: 0 VBACs: 0 Multiple Births: 0 Gestational Diabetes: No Rh Sensitization: No Incompetent Cervix: No TALAT: No Infertility: No ART Treatment: No Uterine Anomaly: No IUGR: No Hx Previous C/S: No Macrosomia: No Hx Loss/Stillborn: No PIH: No Hx : No Placenta Previa/Abruption: No Depression/PP Depression: No PTL/PROM: No Post Hemorrhage: No Obstetrical History Comments: G1 - current - late PNC at 36wks SEE RECORDS Alcohol: No Marijuana : No Cocaine: No Other Illicit Drugs: No Cigarettes: Never Smoker. [id number] MEDICAL HISTORY Diabetes: No Blood Transfusion: No Pulmonary Disease (Asthma, TB): No Breast Disease: No Hypertension: No Extrusion Machine Operator Surgery: No Heart Disease: No Hosp/Surgery: No Autoimmune Disorder: No Anesthetic Complications: No Kidney Disease: No Abnormal Pap Smear: No Neuro/Epilepsy: No Psychiatric Disorders: No Other Medical Diseases: No Hepatitis/Liver Disease: No Significant Family History: No Varicosities/Phlebitis: No Trauma/Violence : No Thyroid Dysfunction: No INFECTIOUS HISTORY Gonorrhea: No Genital Herpes: No Chlamydia: No Tuberculosis: No Syphilis: No Hepatitis: No HIV/AIDS Exposure: No Rash or Viral Illness: No HPV: No PHYSICAL EXAM General: Normal HEENT: Normal Neurologic: Normal Thyroid: Normal Heart: Normal Lungs: Normal Breast: Deferred Back: Normal Abdomen: Normal Genitourinary Exam: Normal Extremities: Normal DTRs: Normal Pelvic Type: Adequate Vital Signs: Reviewed VAGINAL EXAM Dilatation: 2 Effacement: 80 Station: -2 MEMBRANES Pooling: Positive Membranes: Ruptured FETUS A EGA: 40.2 FHR- Baseline: 130 Variability: Moderate 6-25bpm Accelerations: 10X10 Decelerations: None FHR Category: Category I Presentation: Vertex Admit Comment: efw is 7-8 lbs PLANS FOR LABOR AND DELIVERY Labor and Delivery: None Pain Management: Epidural Feeding Preference: Breast Benefit of Breast Feed Discussed: Yes Circumcision: N/A INFORMED CONSENT Signature: with User ID: [email or web address]
--- NOTE | 2017-05-13 03:02 | Delivery Summary ---
Del Sum A-C Datetime Report Generated by CPN: 05/13/2017 03:01 DELIVERY PERSONNEL DELIVERY PERSONNEL: [id number];[id number];[id number] Delivery Doctor:: Eleazar Kee MD Labor and Delivery Nurse:: Louisa Leon RNinpatient coder Nurse:: Marcelina Nelson RN Nursery Nurse:: Corine Clark RN MATERNAL INFORMATION Delivery Anesthesia: Epidural Medications After Delivery: Pitocin Drip 20 Units/1000ml NSS Estimated Blood Loss (ml): 250 Maternal Complications: None LABOR SUMMARY EDC: 05/10/2017 00:00 No. Babies in Womb: 1 Attempted: No Labor Anesthesia: Epidural LABOR INFORMATION Reason for Induction: Not Applicable Onset of Labor: 05/12/2017 18:57 Complete Dilatation: 05/12/2017 22:37 Oxytocin: N/A Group B Beta Strep: Negative Antibiotics # of Doses: 0 Antibiotics Time of Last Dose: N/A Steroids Given: None Reason Steroids Not Administered: Not Applicable MEMBRANES Membranes Rupture Method: Spontaneous Rupture of Membranes: 05/12/2017 13:40 Length of Rupture (hr): 9.28 Amniotic Fluid Color: Clear Amniotic Fluid Amount: Small Amniotic Fluid Odor: Normal STAGES OF LABOR Stage 1 hr: 3 Stage 1 min: 40 Stage 2 hr: 0 Stage 2 min: 20 Stage 3 hr: 0 Stage 3 min: 6 Total Time in Labor hr: 4 Total Time in Labor min: 6 VAGINAL DELIVERY Episiotomy: None Laceration Extension: First Degree Laceration Type: Perineal Other Laceration: bilateral labial Laceration Repair: Yes Laceration Repair Note: repair in usual fashion Sponge Count Correct: Vaginal Sweep Performed Sharps Count Correct: N/A CSECTION DELIVERY Primary Indication: N/A Secondary Indication: N/A CSection Incision: N/A BABY A INFORMATION Infant Delivery Date/Time: 05/12/2017 22:57 Method of Delivery: Vaginal Born in Route : No : N/A Forceps: N/A Vacuum Extraction: N/A Shoulder Dystocia : No PRESENTATION/POSITION BABY A Presentation: Cephalic Cephalic Presentation: Vertex Vertex Position: Left Occipital Anterior Breech Presentation: N/A PLACENTA INFORMATION BABY A Placenta Delivery Time : 05/12/2017 23:03 Placenta Method of Delivery: Spontaneous Placenta Status: Delivered SCORES BABY A Heart Rate 1 min: >100 bpm Resp Effort 1 min: Good Cry Reflex Irritability 1 min: Cough or Sneeze or Pulls Away Muscle Tone 1 min: Active Motion Color 1 min: Body [place], Extremities Blue Resuscitation Effort 1 min: Tactile Stimulation SCORE 1 MIN: 9 Heart Rate 5 min: >100 bpm Resp Effort 5 min: Good Cry Reflex Irritability 5 min: Cough or Sneeze or Pulls Away Muscle Tone 5 min: Active Motion Color 5 min: Body [place], Extremities Blue Resuscitation Effort 5 min: Tactile Stimulation SCORE 5 MIN: 9 INFORMATION BABY A Gestational Age at Delivery: 40.2 Gestational Status: Full Term- 39- 40.6 Weeks Outcome : Liveborn Infant Condition : Stable Infant Sex: Female IDENTIFICATION BABY A ID Band Number: [id number] Mother's Name Verified: Yes Infant RN Verifying : V. Chikisk _ B. Ring WEIGHT/LENGTH BABY A Birthweight (gm): 3345 Infant Weight (lb): 7 Weight (oz): 6 Infant Length (in): 19.50 Infant Length (cm): 49.53 CORD INFORMATION BABY A No. Cord Vessels: 3 Nuchal Cord : N/A Cord Blood Taken: Yes-For Eval (Mom's Blood Type - or O+) Suction: Mouth; Nose ASSESSMENT BABY A Infant Complications: Multiple Late Decels Physical Findings at Delivery: Within Normal Limits Physical Findings- Other: See full nursery assessment Respirations: Appears Normal Skin to Skin: Yes Skin to Skin Time (min): 120 Mems Process Engineer/ALS Called : No Care By: Isabel Clark RN Transferred To: Remains with Mother BABY B INFORMATION : N/A SIGNATURES Signature: with User ID: [email or web address]
[2017-05-13] MEDS: IBUPROFEN 800 MG TABLET PO SCH ×3 (05:38→21:43)
[2017-05-13 07:03] LABS: MEAN CORPUSCULAR HEMOGLOBIN 28.7 pg (27.0-33.4); MEAN CORPUSCULAR HGB CONC 32.2 g/dL (32.0-36.0); MEAN CORPUSCULAR VOLUME 89 fl (80-97); RED BLOOD COUNT 3.48 10^6/uL (3.72-5.28); RED CELL DISTRIBUTION WIDTH 13.8 % (11.5-14.0); WHITE BLOOD COUNT 14.8 10^3/uL (4.0-10.5)
[2017-05-13] MEDS: SENNOSIDES/DOCUSATE 8.6-50 MG 1 EACH TABLET PO SCH (09:25)
[2017-05-13] MEDS: FAMOTIDINE 20 MG TABLET PO SCH ×2 (09:25→21:43)
[2017-05-13] MEDS: FERROUS SULFATE 325 MG TABLET PO SCH ×2 (09:25→17:17)
[2017-05-13] MEDS: PRENATAL VITAMIN W-O CA NO5/FE FUMARATE/FA CAPSULE PO SCH (09:27)
[2017-05-13] MEDS: DOCUSATE SODIUM 100 MG CAPSULE PO SCH ×2 (09:27→17:18)
--- NOTE | 2017-05-13 10:09 | PDOC PROGRESS REPORT ---
Subjective-OB Subjective: Post Delivery Day: 26 year old. Denies any needs at this time Doing well, no c/o, OOB in room, hsb at BS, breast feeding Physical Exam (OB) Vital Signs: Temp Pulse Resp BP Pulse Ox 98.8 F 99 16 109/69 99 05/13/17 02:11 05/13/17 02:11 05/13/17 02:11 05/13/17 02:11 05/13/17 02:11 Intake & Output 05/12/17 05/13/17 05/14/17 06:59 06:59 06:59 Intake Total 240 Balance 240 Weight 54 kg - Lochia Lochia Amount: Scant < 10 ml Lochia Color: Rubra/Red - Abdomen Description: Tender, Soft, Round Hernia Present: No Fundal Description: Firm, Midline Fundal Height: u/u - u/2 Objective-Diagnostic Laboratory: 05/13/17 06:37 05/12/17 05/12/17 05/12/17 14:12 15:59 15:59 WBC 11.5 H RBC 4.48 Hgb 12.5 Hct 39.7 MCV 89 MCH 28.0 MCHC 31.6 L RDW 14.2 H Plt Count 240 Seg Neutrophils % 80.7 H Lymphocytes % 13.4 Monocytes % 5.3 Eosinophils % 0.3 Basophils % 0.3 Absolute Neutrophils 9.3 H Absolute Lymphocytes 1.5 Absolute Monocytes 0.6 Absolute Eosinophils 0.0 Absolute Basophils 0.0 Urine Color COLORLESS Urine Appearance CLEAR Urine pH 7.0 Ur Specific [place] 1.001 Urine Protein NEGATIVE Urine Glucose (UA) NEGATIVE Urine Ketones NEGATIVE Urine Blood NEGATIVE Urine Nitrite NEGATIVE Ur Leukocyte Esterase MODERATE H Blood Type O POSITIVE Antibody Screen NEGATIVE 05/13/17 06:37 WBC 14.8 H RBC 3.48 L Hgb 10.0 L D Hct 31.0 L MCV 89 MCH 28.7 MCHC 32.2 RDW 13.8 Plt Count 197 Seg Neutrophils % Lymphocytes % Monocytes % Eosinophils % Basophils % Absolute Neutrophils Absolute Lymphocytes Absolute Monocytes Absolute Eosinophils Absolute Basophils Urine Color Urine Appearance Urine pH Ur Specific [place] Urine Protein Urine Glucose (UA) Urine Ketones Urine Blood Urine Nitrite Ur Leukocyte Esterase Blood Type Antibody Screen Assessment and Plan(PN) - Assessment and Plan (1) Vaginal delivery Is this a current diagnosis for this admission?: Yes (2) Anemia Qualifiers: Anemia type: iron deficiency Is this a current diagnosis for this admission?: Yes - Time Spent with Patient Time with patient: Less than 15 minutes Medications reviewed and adjusted accordingly: Yes - Disposition Anticipated Discharge: Home Within: within 24 hours
[2017-05-14] MEDS: IBUPROFEN 800 MG TABLET PO SCH (05:26)
[2017-05-14 08:18] VITALS: BP 100/68
[2017-05-14] MEDS: FAMOTIDINE 20 MG TABLET PO SCH (10:35)
[2017-05-14] MEDS: FERROUS SULFATE 325 MG TABLET PO SCH (10:35)
[2017-05-14] MEDS: SENNOSIDES/DOCUSATE 8.6-50 MG 1 EACH TABLET PO SCH (10:35)
[2017-05-14] MEDS: DOCUSATE SODIUM 100 MG CAPSULE PO SCH (10:36)
[2017-05-14] MEDS: PRENATAL VITAMIN W-O CA NO5/FE FUMARATE/FA CAPSULE PO SCH (10:36)
--- NOTE | 2017-05-14 10:51 | PDOC DISCHARGE SUMMARY ---
Final Diagnosis Discharge Date: 05/14/17 - Final Diagnosis (1) Anemia Is this a current diagnosis for this admission?: Yes (2) Vaginal delivery Is this a current diagnosis for this admission?: Yes Discharge Data - Discharge Medication Home Medications: No.40/Iron/FA/Dha [ Multi-Dha Softgel] 1 cap PO DAILY 03/06/17 Reason(s) for Admission: Onset of Labor Intrapartum Procedure(s): Spontaneous Vaginal Delivery Complication(s): Laceration-Perineal Laceration-Degree: 1st - Diagnosis Test Laboratory: Temp Pulse Resp BP Pulse Ox 97.9 F 74 16 100/68 100 05/14/17 07:39 05/14/17 07:39 05/14/17 07:39 05/14/17 07:39 05/14/17 07:39 05/12/17 05/12/17 05/13/17 14:12 15:59 06:37 RBC 4.48 3.48 L Hgb 12.5 10.0 L D Hct 39.7 31.0 L Urine Opiates Screen NEGATIVE - Discharge information/Instructions Discharge Activity: Activity As Tolerated Discharge Diet: Regular Disposition: HOME, SELF-CARE Follow up with: [facility] in: 4
== END 2017-05-14 14:13 | disposition home or self-care (01) | DRG 775 ==
LOC: LC 14:04 → LR 15:05 → 2S 05-13 02:06
PROVIDERS: ADMIT Obstetrics & Gynecology; ATTEND Obstetrics & Gynecology
PROC: 10E0XZZ Delivery of Products of Conception, External Approach (ICD-10-PCS; principal; 2017-05-12)
PROC: 4A1HXCZ Monitoring of Products of Conception, Cardiac Rate, External Approach (ICD-10-PCS; 2017-05-12)
DX: O99.02 Anemia complicating childbirth (principal); D50.9 Iron deficiency anemia, unspecified; O70.0 First degree perineal laceration during delivery; O76 Abnormality in fetal heart rate and rhythm complicating labor and delivery; Z3A.40 40 weeks gestation of pregnancy; Z37.0 Single live birth
CPT/HCPCS: 36415; 80307; 81005; 84112; 85025; 85027; 86592; 86850; 86900; 86901; 94760; J1885; J2590; J3010; J3490

== ENCOUNTER 2018-06-12 10:50 | Inpatient (IN) | payer OTHER, MEDICAID ==
[2018-06-12] MEDS ORDERED: RINGERS SOLUTION,LACTATED 1,000 ML IV ONE (11:26)
[2018-06-12] MEDS ORDERED: RINGERS SOLUTION,LACTATED 1,000 ML IV PRN (11:26)
[2018-06-12] MEDS ORDERED: MISOPROSTOL 0.2 MG TABLET ONE (11:41)
[2018-06-12] MEDS ORDERED: EPHEDRINE SULFATE INJ 50 MG/1 ML AMPULE ONE (11:41)
[2018-06-12] MEDS ORDERED: FENTANYL/BUPIVACAINE/NS/PF 0 MCG/0 ML RTUINJ EPI ONE (11:42)
[2018-06-12] MEDS ORDERED: BUPIVACAINE HCL 0.25 % INJ/PF (2.5 MG/1 ML) 30 ML VIAL ONE (11:42)
[2018-06-12] MEDS ORDERED: OXYTOCIN/NORMAL SALINE 20 UNIT/1,000 ML RTUINJ ONE (11:42)
[2018-06-12] MEDS ORDERED: LIDOCAINE 1% INJ-PF (10 MG/ML) 30 ML SDV ONE (11:42)
[2018-06-12 11:48] LABS: APPEARANCE,URINE CLEAR; BILIRUBIN,URINE NEGATIVE (NEGATIVE); COLOR,URINE STRAW; GLUCOSE, URINE NEGATIVE (NEGATIVE); KETONES,URINE TRACE mg/dL (NEGATIVE); LEUKOCYTE ESTERASE,URINE TRACE (NEGATIVE); NITRITE,URINE NEGATIVE (NEGATIVE); PROTEIN,URINE NEGATIVE (NEGATIVE); URINE SPECIFIC GRAVITY 1.006; UROBILINOGEN,URINE NEGATIVE mg/dL (<2.0)
[2018-06-12 11:51] LABS: AMNISURE (ROM) NEGATIVE (NEGATIVE)
[2018-06-12 12:08] LABS: URINE AMPHETAMINES SCREEN NEGATIVE; URINE BARBITURATES SCREEN NEGATIVE; URINE BENZODIAZEPINES SCREEN NEGATIVE; URINE COCAINE SCREEN NEGATIVE; URINE MARIJUANA (THC) SCREEN NEGATIVE; URINE METHADONE SCREEN NEGATIVE; URINE PHENCYCLIDINE SCREEN NEGATIVE
[2018-06-12 12:08] LABS: HEMATOCRIT 40.4 % (36.0-47.0); HEMOGLOBIN 13.5 g/dL (12.0-15.5); MEAN CORPUSCULAR HEMOGLOBIN 29.3 pg (27.0-33.4); MEAN CORPUSCULAR HGB CONC 33.3 g/dL (32.0-36.0); MEAN CORPUSCULAR VOLUME 88 fl (80-97); PLATELET COUNT 204 10^3/uL (150-450); RED CELL DISTRIBUTION WIDTH 14.6 % (11.5-14.0); WHITE BLOOD COUNT 11.4 10^3/uL (4.0-10.5)
[2018-06-12] MEDS ORDERED: MAGNESIUM HYDROXIDE SUSP 30 ML UDCUP PO PRN (12:19)
[2018-06-12] MEDS ORDERED: BENZOCAINE/MENTHOL AEROSOL SPRAY 56 ML TOP PRN (12:19)
[2018-06-12] MEDS ORDERED: DIPH/PERTUSS(ACELL)/TETANUS VAC/PF 0.5 ML SYR (>=10YO) IM PRN (12:19)
[2018-06-12] MEDS ORDERED: NA PHOS,M-B/NA PHOS,DI-BA (ADULT) 133 ML ENEMA PR PRN (12:19)
[2018-06-12] MEDS ORDERED: DIBUCAINE 1% OINTMENT 28 GM TP PRN (12:19)
[2018-06-12] MEDS ORDERED: ACETAMINOPHEN 650 MG SUPP.RECT PR PRN (12:19)
[2018-06-12] MEDS ORDERED: ZOLPIDEM TARTRATE 5 MG TABLET PO PRN (12:19)
[2018-06-12] MEDS ORDERED: DIPHENHYDRAMINE HCL 25 MG CAPSULE PO PRN (12:19)
[2018-06-12] MEDS ORDERED: ACETAMINOPHEN WITH CODEINE #3 TABLET PO PRN ×2 (12:19)
[2018-06-12] MEDS ORDERED: GLYCERIN/WITCH HAZEL LEAF 1 EACH MED..PAD TP PRN (12:19)
[2018-06-12] MEDS ORDERED: PROMETHAZINE HCL 25 MG SUPP.RECT PR PRN (12:19)
[2018-06-12] MEDS ORDERED: OXYTOCIN/NORMAL SALINE 20 UNIT/1,000 ML RTUINJ IV PRN (12:19)
[2018-06-12] MEDS ORDERED: PROMETHAZINE HCL INJ 25 MG/1 ML VIAL IV PRN (12:19)
[2018-06-12] MEDS ORDERED: MEASLES,MUMPS&RUBELLA VACC/PF 0.5 ML VIAL SUBCUT PRN (12:19)
[2018-06-12] MEDS ORDERED: PSEUDOEPHEDRINE HCL 30 MG TABLET PO PRN (12:19)
[2018-06-12] MEDS ORDERED: PROMETHAZINE HCL 25 MG TABLET PO PRN (12:19)
--- NOTE | 2018-06-12 12:26 | Admission Physical ---
Datetime Report Generated by CPN: 06/12/2018 12:26 CURRENT ADMISSION Chief Complaint: Uterine Contractions Indication for Induction: Not Applicable Admit Impression : Term, Intrauterine Admit Plan: Admit to Unit; Initiate Labor Protocol ALLERGIES Medication Allergies: No Medication Allergies: No Known Allergies (03/06/2017) Latex: No Latex Allergies OBSTETRICAL HISTORY EDC: 06/12/2018 00:00 : 2 Para: 1 Term: 1 : 0 SAB: 0 IAB: 0 Ectopic: 0 Livin Cesareans: 0 VBACs: 0 Multiple Births: 0 Gestational Diabetes: Yes Rh Sensitization: No Incompetent Cervix: No TALAT: No Infertility: No ART Treatment: No Uterine Anomaly: No IUGR: No Hx Previous C/S: No Macrosomia: No Hx Loss/Stillborn: No PIH: No Hx : No Placenta Previa/Abruption: No Depression/PP Depression: No PTL/PROM: No Post Hemorrhage: No Current Procedures: Ultrasound; NST MEDICAL HISTORY Diabetes: Yes Diabetes Type: Gestational Diabetes Blood Transfusion: No Pulmonary Disease (Asthma, TB): No Breast Disease: No Hypertension: No Drupal Architect Surgery: No Heart Disease: No Hosp/Surgery: Yes Autoimmune Disorder: No Anesthetic Complications: No Kidney Disease: No Abnormal Pap Smear: No Neuro/Epilepsy: No Psychiatric Disorders: No Other Medical Diseases: No Hepatitis/Liver Disease: No Significant Family History: No Varicosities/Phlebitis: No Trauma/Violence : No Thyroid Dysfunction: No INFECTIOUS HISTORY Gonorrhea: No Genital Herpes: No Chlamydia: No Tuberculosis: No Syphilis: No Hepatitis: No HIV/AIDS Exposure: No Rash or Viral Illness: No HPV: No PHYSICAL EXAM General: Normal HEENT: Normal Neurologic: Normal Thyroid: Deferred Heart: Normal Lungs: Normal Breast: Deferred Back: Normal Abdomen: Normal Genitourinary Exam: Normal Extremities: Normal DTRs: Deferred Pelvic Type: Adequate Vital Signs: Reviewed; Within Normal Limits VAGINAL EXAM Dilatation: 10 Effacement: 100 Station: 2 Contraction Comments: q2-2.5 mins MEMBRANES Membranes: Bulging FETUS A EGA: 40.0 Monitoring: External US FHR- Baseline: 125 Variability: Moderate 6-25bpm Accelerations: 15X15 Decelerations: Early FHR Category: Category I Estimated Weight (gm): 3100 Presentation: Vertex Admit Comment: at 40 weeks EGA by LMP c/w 13 week sono, GDM A1 presented in active labor. precipitously delivered with thick meconium. PLANS FOR LABOR AND DELIVERY Feeding Preference: Breast INFORMED CONSENT Assignment: Betty Alejandro MD Signature: with User ID: [email or web address] : with User ID: [email or web address]
--- NOTE | 2018-06-12 13:48 | Warning Signs in Babies ---
VOD Warning Signs Datetime Report Generated by [facility]: 06/12/2018 13:48 VOD#608 -Warning Signs in Babies: Viewed with Parent(s)/Family (06/12/2018 11:24:Rhonda Ellsworth RN)
[2018-06-12] MEDS ORDERED: IBUPROFEN 800 MG TABLET ONE (15:01)
--- NOTE | 2018-06-12 16:00 | Delivery Summary ---
Del Sum A-C Datetime Report Generated by CPN: 06/12/2018 16:00 DELIVERY PERSONNEL DELIVERY PERSONNEL: [id number] Delivery Doctor:: Nena Qiu CNM Nurse Banquet Kitchen Supervisor Certified:: Nena Qiu CNM Labor and Delivery Nurse:: Maribell Bran RN Labor and Delivery Nurse:: YAIR Sanchez Nursery Nurse:: YAIR Loco Shoe Coverer/ASSISTANT GOLF PROFESSIONAL: ST Ashley Shoe Coverer/ASSISTANT GOLF PROFESSIONAL: Courtney Torres CST Additional Personnel: : Fede Rebollar RN MATERNAL INFORMATION Delivery Anesthesia: Local Medications During Delivery: Lidocaine for repair Medications After Delivery: Pitocin Bolus-Please Comment; Pitocin Drip 20 Units/1000ml NSS Meds After Delivery Comment: 20 units pitocin in 1000ml NS Estimated Blood Loss (ml): 200 Maternal Complications: Precipitous Labor (<3hrs) Provider Comments: PRECIPITOUS ENEDELIA VIABLE MALE WITH SPONTANEOUS CRY. LOOSE BODY CORD REDUCED AFTER DELIBERY OF BODY. LEFT NUCHAL HAND NOTED. SPONTANEOUS INTACT PLACENTA WITH 3VC. SMALL PERINEAL LACERATION REPAIRED UNDER LOCAL ANESTHESIA. MOTHER AND INFANT STABLE IN L_D#3. LABOR SUMMARY EDC: 06/12/2018 00:00 No. Babies in Womb: 1 Attempted: No Labor Anesthesia: None LABOR INFORMATION Reason for Induction: Not Applicable Complete Dilatation: 06/12/2018 11:48 Oxytocin: N/A Group B Beta Strep: negative Antibiotics # of Doses: 0 Steroids Given: None Reason Steroids Not Administered: Not Applicable MEMBRANES Membranes Rupture Method: Artificial Rupture of Membranes: 06/12/2018 11:49 Length of Rupture (hr): 0.05 Amniotic Fluid Color: Heavy Meconium Amniotic Fluid Amount: Moderate Amniotic Fluid Odor: Normal STAGES OF LABOR Stage 2 hr: 0 Stage 2 min: 4 Stage 3 hr: 0 Stage 3 min: 3 VAGINAL DELIVERY Episiotomy: None Laceration #1: Perineal Laceration Extension #1: First Degree Laceration Repair: Yes Laceration Repair Note: 3.0 chromic with local anesthesia Sponge Count Correct: N/A Sharps Count Correct: N/A CSECTION DELIVERY Primary Indication: N/A Secondary Indication: N/A CSection Incidence: N/A Labor: N/A Elective: N/A CSection Incision: N/A BABY A INFORMATION Delivery Date/Time: 06/12/2018 11:52 Method of Delivery: Vaginal Born in Route : No : N/A Forceps: N/A Vacuum Extraction: N/A Shoulder Dystocia : No PRESENTATION/POSITION BABY A Presentation: Cephalic Cephalic Presentation: Vertex Vertex Position: Left Occipital Anterior Breech Presentation: N/A PLACENTA INFORMATION BABY A Placenta Delivery Time : 06/12/2018 11:55 Placenta Method of Delivery: Spontaneous Placenta Status: Delivered SCORES BABY A Heart Rate 1 min: >100 bpm Resp Effort 1 min: Good Cry Reflex Irritability 1 min: Cough or Sneeze or Pulls Away Muscle Tone 1 min: Active Motion Color 1 min: Body [place], Extremities Blue Resuscitation Effort 1 min: N/A SCORE 1 MIN: 9 Heart Rate 5 min: >100 bpm Resp Effort 5 min: Good Cry Reflex Irritability 5 min: Cough or Sneeze or Pulls Away Muscle Tone 5 min: Active Motion Color 5 min: Body [place], Extremities Blue Resuscitation Effort 5 min: N/A SCORE 5 MIN: 9 INFANT INFORMATION BABY A Gestational Age at Delivery: 40.0 Gestational Status: Full Term- 39- 40.6 Weeks Infant Outcome : Liveborn Condition : Stable Infant Sex: Male IDENTIFICATION BABY A Infant Verification Date/Time: 06/12/2018 11:59 ID Band Number: [id number] Mother's Name Verified: Yes Infant RN Verifying : R Sixto RN. D Bellavance RNC WEIGHT/LENGTH BABY A Birthweight (gm): 3200 Weight (lb): 7 Weight (oz): 1 Length (in): 20.50 Length (cm): 52.07 CORD INFORMATION BABY A No. Cord Vessels: 3 Nuchal Cord : N/A Nuchal Cord- Other: nuhcal hand Cord Blood Taken: Yes-For Eval (Mom's Blood Type - or O+) Suction: Mouth; Nose ASSESSMENT BABY A Skin to Skin: Yes Skin to Skin Time (min): 60 BABY B INFORMATION : N/A SIGNATURES Assignment: Betty Alejandro MD Signature: with User ID: [email or web address] : with User ID: [email or web address] : I was personally available for consultation and serving as supervising physician for the MLP.
[2018-06-12] MEDS: IBUPROFEN 800 MG TABLET PO SCH ×2 (19:29→21:36)
[2018-06-12] MEDS: DOCUSATE SODIUM 100 MG CAPSULE PO SCH (19:29)
[2018-06-12] MEDS: FERROUS SULFATE 325 MG TABLET PO SCH (19:29)
[2018-06-12] MEDS: FAMOTIDINE 20 MG TABLET PO SCH (21:37)
[2018-06-13] MEDS: IBUPROFEN 800 MG TABLET PO SCH ×3 (05:07→21:24)
[2018-06-13 06:48] LABS: ABSOLUTE LYMPHOCYTES (AUTO) 1.4 10^3/uL (0.5-4.7); ABSOLUTE MONOCYTES (AUTO) 0.5 10^3/uL (0.1-1.4); ABSOLUTE NEUT (AUTO) 9.6 10^3/uL (1.7-8.2); BASOPHILS % (AUTO) 0.4 % (0-2); EOSINOPHILS % (AUTO) 0.4 % (0-6); LYMPHOCYTES % (AUTO) 11.8 % (13-45); MEAN CORPUSCULAR HEMOGLOBIN 29.4 pg (27.0-33.4); MEAN CORPUSCULAR HGB CONC 33.6 g/dL (32.0-36.0); MEAN CORPUSCULAR VOLUME 88 fl (80-97); MONOCYTES % (AUTO) 4.1 % (3-13); PLATELET COUNT 173 10^3/uL (150-450); RED BLOOD COUNT 3.89 10^6/uL (3.72-5.28); RED CELL DISTRIBUTION WIDTH 14.4 % (11.5-14.0); SEGMENTED NEUTROPHILS % (AUTO) 83.3 % (42-78); TOTAL CELLS COUNTED % (AUTO) 100 %; WHITE BLOOD COUNT 11.5 10^3/uL (4.0-10.5)
[2018-06-13 06:57] LABS: HEMOGLOBIN 11.4 g/dL (12.0-15.5)
[2018-06-13] MEDS: DOCUSATE SODIUM 100 MG CAPSULE PO SCH ×2 (09:27→19:02)
[2018-06-13] MEDS: PRENATAL VITAMIN W DHA CAPSULE PO SCH (09:27)
[2018-06-13] MEDS: FERROUS SULFATE 325 MG TABLET PO SCH ×2 (09:27→19:02)
[2018-06-13] MEDS: SENNOSIDES/DOCUSATE 8.6-50 MG 1 EACH TABLET PO SCH (09:27)
[2018-06-13] MEDS: FAMOTIDINE 20 MG TABLET PO SCH ×2 (09:27→21:25)
[2018-06-14] MEDS: IBUPROFEN 800 MG TABLET PO SCH (06:13)
[2018-06-14] MEDS: SENNOSIDES/DOCUSATE 8.6-50 MG 1 EACH TABLET PO SCH (09:28)
[2018-06-14] MEDS: DOCUSATE SODIUM 100 MG CAPSULE PO SCH (09:28)
[2018-06-14] MEDS: PRENATAL VITAMIN W DHA CAPSULE PO SCH (09:28)
[2018-06-14] MEDS: FAMOTIDINE 20 MG TABLET PO SCH (09:28)
[2018-06-14] MEDS: FERROUS SULFATE 325 MG TABLET PO SCH (09:28)
--- NOTE | 2018-06-14 10:20 | PDOC PROGRESS REPORT ---
Subjective-OB Progress Note for:: 06/14/18 Subjective: Ready for discharge. Pelvic rest x 4-6 wks. Physical Exam (OB) Vital Signs: Temp Pulse Resp BP Pulse Ox 98.0 F 82 16 114/69 98 06/14/18 07:53 06/14/18 07:53 06/14/18 07:53 06/14/18 07:53 06/14/18 07:53 Intake & Output 06/13/18 06/14/18 06/15/18 06:59 06:59 06:59 Intake Total 200 975 Balance 200 975 Weight 53.5 kg - Lochia Lochia Amount: Scant < 10 ml Lochia Color: Rubra/Red - Abdomen Description: Soft, Round Hernia Present: No Bowel Sounds: Normoactive Flatus Presence: Present Stool: Yes Fundal Description: Firm, Midline Fundal Height: u/u - u/2 Objective-Diagnostic Laboratory: 06/13/18 06:33
[2018-06-14 10:24] VITALS: BP 112/70
--- NOTE | 2018-06-14 10:24 | PDOC DISCHARGE SUMMARY ---
Final Diagnosis Discharge Date: 06/14/18 - Final Diagnosis (1) GDM (gestational diabetes mellitus) Is this a current diagnosis for this admission?: Yes (2) Laceration, obstetrical, first degree Is this a current diagnosis for this admission?: Yes (3) Precipitous delivery, delivered (current hospitalization) Is this a current diagnosis for this admission?: Yes (4) Vaginal delivery Is this a current diagnosis for this admission?: Yes Discharge Data - Discharge Medication Home Medications: Vit 40/Iron/Folic/Dha [ Multi-Dha Softgel] 1 cap PO DAILY 03/06 Gestational Age: 40.0 wks Reason(s) for Admission: Onset of Labor Procedures: Ultrasound Intrapartum Procedure(s): Spontaneous Vaginal Delivery Complication(s): Laceration-Vaginal Laceration-Degree: 1st - [place] Data Baby 1 Male at 1 minute: 9 at 5 minutes: 9 Weight: 3.203 kg Home with Mother: Yes Complications: No - Diagnosis Test Laboratory: Temp Pulse Resp BP Pulse Ox 98.0 F 82 16 114/69 98 06/14/18 07:53 06/14/18 07:53 06/14/18 07:53 06/14/18 07:53 06/14/18 07:53 06/12/18 06/12/18 06/13/18 11:05 11:42 06:33 RBC 4.60 3.89 Hgb 13.5 11.4 L D Hct 40.4 34.0 L Urine Opiates Screen NEGATIVE - Discharge information/Instructions Discharge Activity: Activity As Tolerated, Balance Activity w/Rest, Pelvic Rest , Slowly Increase Activity, No tub bath Discharge Diet: As Tolerated Disposition: HOME, SELF-CARE Follow up with: [facility] in: 4, Weeks
== END 2018-06-14 12:40 | disposition home or self-care (01) | DRG 775 ==
LOC: LC 10:50 → LR 11:32 → 2S 15:40
PROVIDERS: ADMIT Student in an Organized Health Care Education/Training Program; ATTEND Student in an Organized Health Care Education/Training Program
PROC: 10E0XZZ Delivery of Products of Conception, External Approach (ICD-10-PCS; principal; 2018-06-12)
DX: O24.429 Gestational diabetes mellitus in childbirth, unspecified control (principal); O62.3 Precipitate labor; O69.89X0 Labor and delivery complicated by other cord complications, not applicable or unspecified; O70.0 First degree perineal laceration during delivery; Z3A.40 40 weeks gestation of pregnancy; Z37.0 Single live birth
CPT/HCPCS: 36415; 80307; 81005; 84112; 85025; 85027; 86592; 86850; 86900; 86901; J2590; J3010; J3490

== ENCOUNTER 2020-09-03 10:31 | Emergency (ER) | payer MEDICAID, OTHER ==
--- NOTE | 2020-09-03 11:11 | ER Document Report ---
ED Medical Screen (RME) - General Chief Complaint: Chest Pain Stated Complaint: CHEST PAIN, Time Seen by Provider: 09/03/20 11:07 Primary Care Provider: CUATE LOU MD [Primary Care Provider] - Follow up as needed Notes: Patient presents complaining of chest pain off and on for the past 10 days. Patient states that she will get chest pain with exertional activities and feel lightheaded and have left arm heaviness. Patient denies any cough or cold symptoms. Patient reports some nausea at this time. Patient complains of lightheadedness at this time. Patient without any significant medical history other reports a family history of CAD. I have greeted and performed a rapid initial assessment of this patient. A comprehensive ED assessment and evaluation of the patient, analysis of test results and completion of the medical decision making process will be conducted by additional ED providers. TRAVEL OUTSIDE OF THE [place] IN LAST 30 DAYS: No - Related Data Allergies/Adverse Reactions: No Known Allergies Allergy (Verified 09/03/20 11:06) Physical Exam - Vital signs Vitals: Temp Pulse Resp BP Pulse Ox 99.0 F 88 18 123/60 100 09/03/20 10:54 09/03/20 10:54 09/03/20 10:54 09/03/20 10:54 09/03/20 10:54 - Cardiovascular Rhythm: Regular Heart sounds: S1 appreciated, S2 appreciated Course - Vital Signs Vital signs: Temp Pulse Resp BP Pulse Ox 99.0 F 88 18 123/60 100 09/03/20 10:54 09/03/20 10:54 09/03/20 10:54 09/03/20 10:54 09/03/20 10:54 Doctor's Discharge - Discharge Referrals: CUATE LOU MD [Primary Care Provider] - Follow up as needed
[2020-09-03 11:34] LABS: ABSOLUTE EOSINOPHILS # (AUTO) 0.1 10^3/uL (0.0-0.6); ABSOLUTE LYMPHOCYTES (AUTO) 1.3 10^3/uL (0.5-4.7); ABSOLUTE MONOCYTES (AUTO) 0.4 10^3/uL (0.1-1.4); ABSOLUTE NEUT (AUTO) 2.3 10^3/uL (1.7-8.2); BASOPHILS % (AUTO) 0.6 % (0-2); HEMATOCRIT 41.6 % (36.0-47.0); HEMOGLOBIN 14.4 g/dL (12.0-15.5); LYMPHOCYTES % (AUTO) 31.5 % (13-45); MEAN CORPUSCULAR HEMOGLOBIN 30.8 pg (27.0-33.4); MEAN CORPUSCULAR HGB CONC 34.7 g/dL (32.0-36.0); MEAN CORPUSCULAR VOLUME 89 fl (80-97); PLATELET COUNT 221 10^3/uL (150-450); RED BLOOD COUNT 4.68 10^6/uL (3.72-5.28); RED CELL DISTRIBUTION WIDTH 12.8 % (11.5-14.0); SEGMENTED NEUTROPHILS % (AUTO) 56.9 % (42-78); TOTAL CELLS COUNTED % (AUTO) 100 %
[2020-09-03 11:57] LABS: ALBUMIN 4.5 g/dL (3.5-5.0); ALKALINE PHOSPHATASE 72 U/L (38-126); ANION GAP 10 (5-19); ASPARTATE AMINO TRANSFERASE 21 U/L (14-36); BILIRUBIN,DIRECT 0.2 mg/dL (0.0-0.4); BILIRUBIN,TOTAL 0.4 mg/dL (0.2-1.3); BLOOD UREA NITROGEN 9 mg/dL (7-20); CALCIUM 9.4 mg/dL (8.4-10.2); CARBON DIOXIDE 25 mmol/L (22-30); CHLORIDE 107 mmol/L (98-107); GLUCOSE 102 mg/dL (75-110); POTASSIUM 4.3 mmol/L (3.6-5.0); TOTAL PROTEIN 7.3 g/dL (6.3-8.2)
--- NOTE | 2020-09-03 12:04 | RADIOLOGY REPORT (SQ) ---
EXAM DESCRIPTION: CHEST SINGLE VIEW IMAGES COMPLETED DATE/TIME: 09/03/2020 11:35 am REASON FOR STUDY: cp COMPARISON: None. TECHNIQUE: Single frontal radiographic view of the chest acquired. NUMBER OF VIEWS: One view. LIMITATIONS: None. FINDINGS: LUNGS AND PLEURA: No pneumothorax. No consolidation or pleural effusion. MEDIASTINUM AND HILAR STRUCTURES: No contour abnormalities. HEART AND VASCULAR STRUCTURES: Heart normal size. BONES: No acute findings. HARDWARE: None in the chest. OTHER: No other significant finding. IMPRESSION: NO ACUTE FINDINGS. TECHNICAL DOCUMENTATION: JOB ID: [id number] [place]-72 2010 [employer] ([employer])- All Rights Reserved Reading location - IP/workstation name: [email or web address]
[2020-09-03 13:13] VITALS: BP 123/70
--- NOTE | 2020-09-03 17:13 | ER Document Report ---
Entered by VIRIDIANA NAVA SCRIBE 09/03/20 1251 Acting as scribe for:JOHNATHAN NGUYỄN MD ED General - General Chief Complaint: Chest Pain Stated Complaint: CHEST PAIN, Time Seen by Provider: 09/03/20 11:07 Primary Care Provider: CUATE LOU MD [NO LOCAL MD] - Follow up as needed Mode of Arrival: Ambulatory Information source: Patient Notes: This 29-year-old female patient presents to the emergency department today with complaints of chest pain for the last week and a half. 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 She reports that she was hyperventilating, she noticed that her arms became paralyzed and her hands cramped up. She reports that the hand cramping and arm paralyzation lasted for approximately 30 minutes. Patient admits that she thinks that her symptoms could have been stress related. TRAVEL OUTSIDE OF THE [place] IN LAST 30 DAYS: No - Related Data Allergies/Adverse Reactions: No Known Allergies Allergy (Verified 09/03/20 11:06) Past Medical History - General Information source: Patient - Social History Smoking Status: Never Smoker Cigarette use (# per day): No Chew tobacco use (# tins/day): No Smoking Education Provided: No Frequency of alcohol use: Rare Drug Abuse: None Occupation: [employer] Lives with: Family Family History: Reviewed & Not Pertinent Patient has homicidal ideation: No - Medical History Medical History: Negative Surgical Hx: Negative Review of Systems - Review of Systems Constitutional: No symptoms reported EENT: No symptoms reported Cardiovascular: See HPI, Chest pain Respiratory: No symptoms reported Gastrointestinal: No symptoms reported Genitourinary: No symptoms reported Female Genitourinary: No symptoms reported Musculoskeletal: No symptoms reported Skin: No symptoms reported Hematologic/Lymphatic: No symptoms reported Neurological/Psychological: No symptoms reported -: Yes All other systems reviewed and negative Physical Exam - Vital signs Vitals: Temp Pulse Resp BP Pulse Ox 99.0 F 88 18 123/60 100 09/03/20 10:54 09/03/20 10:54 09/03/20 10:54 09/03/20 10:54 09/03/20 10:54 - Notes Notes: Physical Exam: General: Alert, appears well. HEENT: Normocephalic. Atraumatic. PERRL. Extraocular movements intact. Oropharynx clear. Neck: Supple. Non-tender. Respiratory: No respiratory distress. Clear and equal breath sounds bilaterally. Anterior chest wall tenderness to palpation. Increased tenderness to palpation over the inferior sternum. Cardiovascular: Regular rate and rhythm. Abdominal: Normal Inspection. Non-tender. No distension. Normal Bowel Sounds. Back: No gross abnormalities. Extremities: Moves all four extremities. Upper extremities: Normal inspection. Normal ROM. Lower extremities: Normal inspection. No edema. Normal ROM. Neurological: Normal cognition. AAOx4. Normal speech. Psychological: Normal affect. Normal Mood. Skin: Warm. Dry. Normal color. Course - Vital Signs Vital signs: Temp Pulse Resp BP Pulse Ox 99.0 F 88 16 123/70 100 09/03/20 10:54 09/03/20 10:54 09/03/20 13:00 09/03/20 13:00 09/03/20 13:00 - Laboratory Result Diagrams: 09/03/20 11:15 09/03/20 11:15 - Diagnostic Test Radiology reviewed: Image reviewed, Reports reviewed - Chest x-ray does not show acute cardiopulmonary process - EKG Interpretation by Tx EKG shows normal: Sinus rhythm, [place], Intervals, QRS Complexes, ST-T Waves Rate: Normal - 80 Rhythm: NSR Discharge - Discharge Clinical Impression: Anterior chest wall pain, Panic attack as reaction to stress Condition: Stable Disposition: HOME, SELF-CARE Additional Instructions: SpellChest Wall Pain Your chest pain has been diagnosed as coming from the chest wall. This is often caused by straining the muscles or joints in the chest during physical activity, direct trauma, coughing, or vigorous vomiting. Persons with arthritis are especially prone to this type of pain, due to inflammation of the cartilage joints near the breast bone. Occasionally, no cause can be found. Rest from strenuous physical activity. This kind of chest pain is usually m jeremiah worse by movement of the chest. Depending on the symptoms, we may prescribe medicine for pain, muscle relaxation, and antiinflammatory effects. If the pain is new, and seems to be due to muscle strain, cold packs can help. Otherwise, apply gentle warmth to the painful area for 15 minutes every hour or two. You should contact the doctor immediately if things change. Further evaluation is needed if you develop a fever or cough, if the nature of the pain changes, or if you become short of breath. Panic Attack The cause of panic attacks is unknown. Symptoms can include chest pain, shortness of breath, palpitations, sweats, and a sense of smothering or impending doom. In time, the panic attacks can lead to generalized anxiety and phobias. Because the symptoms can mimic heart attack, pulmonary embolism, and other serious diseases, the physician has evaluated you for these conditions. There is no evidence of a serious problem. An acute panic attack usually goes away by itself without treatment. A severe attack can be treated with medicine to calm you. Long-term, antidepressant medicines may help prevent attacks. Counselling can also be very beneficial in dealing with panic attacks. Panic attacks are less likely if you are getting regular exercise, proper diet, and plenty of sleep. It's normal for panic attacks to cause many frightening symptoms. However, you should call or return if your symptoms change significantly or if you are worsening. From your history, it sounds like the episode at work with the hyperventilation and some were due to a panic attack related to an acute stressful event. The chest pain you have been having is coming from your anterior chest wall, there is no evidence of heart or lung involvement. The management of the chest wall pain is usually taking nonsteroidal anti- inflammatory medication such as ibuprofen 600 mg every 8 hours, or Aleve 2 tablets every 12 hours. You can also take Tylenol with this for additional benefit. If the stress/panic attacks become a frequent problem, then you should seek mental health counseling. If it is only a rare occurrence, then try sitting down, taking deep breaths and blowing out slowly through pursed lips to reorient your focus on the work and not the stress associated with it. Follow-up with your primary care provider if not improving. RETURN TO THE EMERGENCY ROOM IF ANY NEW OR WORSENING SYMPTOMS. Referrals: CUATE LOU MD [NO LOCAL MD] - Follow up as needed I personally performed the services described in the documentation, reviewed and edited the documentation which was dictated to the scribe in my presence, and it accurately records my words and actions.
--- NOTE | 2020-09-04 10:09 | EKG REPORT ---
SEVERITY:- NORMAL ECG - SINUS RHYTHM : Confirmed by: Mara Arzate MD 04-Sep-2020 10:08:44
== END 2020-09-03 13:13 | disposition home or self-care (01) ==
LOC: ER 10:31
DX: F43.0 Acute stress reaction (principal); R07.89 Other chest pain
CPT/HCPCS: 36415; 71045; 80053; 83735; 84484; 84703; 85025; 93005; 93010; 99285